=== PATIENT | female | born 1950 | race Caucasian/White ===

== ENCOUNTER → 2016-08-05 | Outpatient (CLI) | payer OTHER ==
--- NOTE | 2016-08-05 12:13 | REPMRS ---
Patient History The patient states she had a clinical breast exam in 07/2016. Patient is postmenopausal. Family history of colorectal cancer in father at age 88, colorectal cancer in paternal grandfather at age 50 or over, and colorectal cancer in mother at age 63. Taking estrogen for 28 years. Digital Woman Screen Mammo: August 05, 2016 - Exam #: [id number] Bilateral CC and MLO view(s) were taken. Technologist: Kamryn Augirre, Technologist Prior study comparison: June 25, 2015, digital woman screen mammo performed at [facility]. May 28, 2014, digital woman screen mammo performed at [facility]. FINDINGS: There are scattered fibroglandular densities. There has been no change in the appearance of the mammogram from the prior studies. There is a mild amount of residual fibroglandular tissue which is fairly symmetric. There is no interval development of dominant mass, architectural distortion, or clustered microcalcification suggestive of malignancy. ASSESSMENT: BI-RADS/ACR category 1 mammogram. Negative. Recommendation Routine screening mammogram in 1 year (for women over age 40). This mammogram was interpreted with the aid of an FDA-approved computer-aided dectection system. Electronically Signed By: Kendrick Davis MD 08/05/16 [id number]
== END ==
LOC: M WHC 10:52
PROVIDERS: ATTEND Nurse Practitioner Women's Health
DX: Z12.31 Encounter for screening mammogram for malignant neoplasm of breast (principal); Z78.0 Asymptomatic menopausal state

== ENCOUNTER → 2016-11-01 | Outpatient (CLI) | payer MEDICARE, OTHER ==
[~2016-11-01] VITALS: Ht 165.1 cm; Wt 68.0 kg
[~2016-11-01] MED LIST: ASPI1TAB PO; ESTR3TA PO; LIDOCAINE 2% INJ 100 MG/5 ML SDV (FOR ANES.) As Ordered ONE; NS 1,000 ML IV ONE; PROPOFOL 500 MG/50 ML VIAL As Ordered ONE; TOPA100T8 PO
[2016-11-01 09:00] VITALS: BP 105/62
== END | disposition home or self-care (01) ==
LOC: M OPP 07:28
PROVIDERS: ATTEND Internal Medicine Gastroenterology
DX: Z12.11 Encounter for screening for malignant neoplasm of colon (principal); K64.0 First degree hemorrhoids; Z80.0 Family history of malignant neoplasm of digestive organs; K58.9 Irritable bowel syndrome, unspecified; K21.9 Gastro-esophageal reflux disease without esophagitis; R12 Heartburn; M54.5 Low back pain; G43.909 Migraine, unspecified, not intractable, without status migrainosus; Z78.0 Asymptomatic menopausal state; Z91.013 Allergy to seafood; Z88.0 Allergy status to penicillin; Z79.82 Long term (current) use of aspirin; Z79.899 Other long term (current) drug therapy

== ENCOUNTER → 2017-08-08 | Outpatient (CLI) | payer MEDICARE, OTHER | LOC: M WHC 10:16 | DX: Z12.31 Encounter for screening mammogram for malignant neoplasm of breast (principal); Z01.419 Encounter for gynecological examination (general) (routine) without abnormal findings (principal); Z78.0 Asymptomatic menopausal state; Z80.3 Family history of malignant neoplasm of breast; Z80.0 Family history of malignant neoplasm of digestive organs; Z92.23 Personal history of estrogen therapy | CPT/HCPCS: 77067 ==

== ENCOUNTER → 2018-09-06 | Outpatient (CLI) | payer MEDICARE, OTHER ==
[~2018-09-06] MED LIST changes: -ASPI1TAB PO; +ASPI81TA26 PO; -LIDOCAINE 2% INJ 100 MG/5 ML SDV (FOR ANES.) As Ordered ONE; -NS 1,000 ML IV ONE; -PROPOFOL 500 MG/50 ML VIAL As Ordered ONE; +TOPA100T12 PO; -TOPA100T8 PO
--- NOTE | 2018-09-06 11:32 | REPMRS ---
Patient History The patient states she had a clinical breast exam in 08/2018. Family history of colorectal cancer at age 63 in mother, colorectal cancer at age 88 in father, colorectal cancer at age 50 or over in paternal grandfather, breast cancer at age 69 in sister. Took estrogen for 28 years. Digital Woman Screen Mammo: September 06, 2018 - Exam #: [id number] Bilateral CC and MLO view(s) were taken. Technologist: Kamryn Aguirre, Technologist Prior study comparison: August 08, 2017, digital woman screen mammo performed at [facility]. August 05, 2016, digital woman screen mammo performed at [email or web address]. June 25, 2015, digital woman screen mammo performed at [email or web address]. FINDINGS: There are scattered fibroglandular densities. There has been no change in the appearance of the mammogram from the prior studies. There is a mild amount of scattered fibroglandular density which is fairly symmetric. There is no interval development of dominant mass, architectural distortion, or clustered microcalcification suggestive of malignancy. 3-D tomosynthesis shows no additional findings. Assessment: BI-RADS/ACR category 1 mammogram. Negative Mammogram. Recommendation Routine screening mammogram of both breasts in 1 year (for women over age 40). This patient's Lifetime Breast Cancer RIsk is estimated at 5.9 %. This mammogram was interpreted with the aid of an FDA-approved computer-aided dectection system. Electronically Signed By: Earnest Garzon MD 09/06/18 [id number]
== END ==
LOC: M WHC 09:33
PROVIDERS: ATTEND Nurse Practitioner Women's Health
DX: Z01.419 Encounter for gynecological examination (general) (routine) without abnormal findings (principal); Z12.31 Encounter for screening mammogram for malignant neoplasm of breast; Z92.23 Personal history of estrogen therapy; Z80.3 Family history of malignant neoplasm of breast; Z80.0 Family history of malignant neoplasm of digestive organs
CPT/HCPCS: 77063; 77067; G0101

== ENCOUNTER → 2019-09-25 | Outpatient (CLI) | payer MEDICARE, OTHER ==
--- NOTE | 2019-09-25 11:21 | REP ---
REASON: Foot pain. No trauma. No priors. FINDINGS: The joint spaces are symmetric and relatively well maintained. There is no evidence of acute fracture or destructive osseous lesion. Plantar and retrocalcaneal heel spurs are present. IMPRESSION: Negative. Electronically Signed by Chetan Hutchins DO 09/25/2019 12:06 P
== END ==
LOC: M WUC 10:47
PROVIDERS: ATTEND Nurse Practitioner Family
DX: M77.32 Calcaneal spur, left foot (principal); M79.672 Pain in left foot

== ENCOUNTER → 2019-11-29 | Outpatient (CLI) | payer MEDICARE, OTHER ==
--- NOTE | 2019-11-29 11:06 | REPMRS ---
Patient History The patient states she has not had a clinical breast exam in over a year. Family history of colorectal cancer at age 63 in mother, colorectal cancer at age 88 in father, colorectal cancer at age 50 or over in paternal grandfather, breast cancer at age 69 in sister. Took estrogen for 28 years. 3D TOMOSYNTHESIS WAS PERFORMED. The [facility] lifetime risk for breast cancer is 5.2%. VOLPARA DENSITY B. Digital Woman Screen Mammo: November 29, 2019 - Exam #: [id number] Bilateral CC and MLO view(s) were taken. Technologist: Fozia Peralta, Technologist Prior study comparison: September 06, 2018, bilateral digital woman screen mammo performed at [facility]. August 08, 2017, digital woman screen mammo performed at [facility]. FINDINGS: The breast tissue is heterogeneously dense. This may lower the sensitivity of mammography. There has been no change in the appearance of the mammogram from the prior studies. There is a moderate amount of residual fibroglandular tissue which is fairly symmetric. There is no interval development of dominant mass, areas of architectural distortion, or clustered microcalcification typical of malignancy. Assessment: BI-RADS/ACR category 1 mammogram. Negative Mammogram. Recommendation Routine screening mammogram in 1 year (for women over age 40). This mammogram was interpreted with the aid of an FDA-approved computer-aided dectection system. Electronically Signed By: Kendrick Davis MD 11/29/19 [id number]
--- NOTE | 2020-01-02 09:48 | DEXA ---
AP SPINE L1 - L4 1.078 -0.9 0.7 LT FEMUR TOTAL 0.906 -0.8 0.5 LT NECK 0.887 -1.1 0.5 RT FEMUR TOTAL 0.908 -0.8 0.6 RT NECK 0.800 -1.7 -0.1 TOTAL BODY TOTAL OTHER COMMENTS: Normal Bone Densitometry of the spine. There is low bone density of the hips. The increased density of the spine does represent a significant change. The decreased density of the left hip does represent a significant change. The decreased density of the right hip does represent a significant change. The density of the spine has decreased 5.7% since the initial exam on 03/02/2004. The decreased 2.4% since the most recent exam on 08/07/2009. The density of the left hip has decreased 8.6% since the initial exam on 03/02/2004. The density of the left hip has decreased 3.0% since the most recent exam on 08/07/2009. The density of the right hip has decreased 12.7% since the initial exam on 03/02/2004. The density of the right hip has decreased 8.0% since the most recent exam on08/07/2009. FOLLOW-UP: Recommendation for the next bone density exam: 2 years. KARRI
== END ==
LOC: M WHC 09:51
PROVIDERS: ATTEND Nurse Practitioner Women's Health
DX: Z12.31 Encounter for screening mammogram for malignant neoplasm of breast (principal); Z78.0 Asymptomatic menopausal state; Z80.0 Family history of malignant neoplasm of digestive organs; Z80.3 Family history of malignant neoplasm of breast

== ENCOUNTER 2020-12-02 09:53 | Emergency (ER) | payer MEDICARE, OTHER ==
[~2020-12-02] VITALS: Ht 165.1 cm; Wt 75.0 kg
[2020-12-02] MEDS ORDERED: FAMO20TA PO (10:19)
[2020-12-02] MEDS ORDERED: RELP40TA PO (10:20)
[2020-12-02 10:53] LABS: BASO # 0.1 10^3/uL (0.0-0.2); EOS # 0.2 10^3/uL (0.0-0.5); EOS % 3.9 % (0.0-3.0); HEMATOCRIT 44.3 % (36.0-47.0); HEMOGLOBIN 14.2 g/dl (12.0-15.5); LYMPH # 1.3 10^3/uL (1.5-5.0); LYMPH % 24.2 % (24.0-44.0); MEAN CORPUSCULAR HEMOGLOBIN 28.9 pg (27.0-33.0); MEAN CORPUSCULAR HGB CONC 32.1 g/dl (32.0-36.5); MONO # 0.4 10^3/uL (0.0-0.8); MONO % 7.5 % (2.0-8.0); NEUTROPHILS # 3.3 10^3/uL (1.5-8.5); PLATELET COUNT, AUTOMATED 270 10^3/uL (150-450); RED BLOOD COUNT 4.92 10^6/uL (4.00-5.40); WHITE BLOOD COUNT 5.2 10^3/uL (4.0-10.0)
[2020-12-02 11:04] LABS: INR 0.95; PROTHROMBIN TIME 12.9 SECONDS (12.5-14.3)
--- NOTE | 2020-12-02 11:04 | REP ---
INDICATION: CHEST PAIN. COMPARISON: Comparison chest x-ray August 25, 2006. TECHNIQUE: Portable upright AP chest radiograph. FINDINGS: The lungs are well inflated and free of infiltrate. Pleural angles are sharp. Heart size is normal. Pulmonary vasculature is not increased. EKG electrodes are seen. The radiograph is exposed at a somewhat lordotic angle today. IMPRESSION: No active disease. <Electronically signed by Earnest Garzon > 12/02/20 [id number]
[2020-12-02 11:15] LABS: ALBUMIN 4.4 GM/DL (3.2-5.2); ALT/SGPT 26 U/L (12-78); BILIRUBIN,DIRECT < 0.1 MG/DL (0.0-0.2); BILIRUBIN,TOTAL 0.3 MG/DL (0.2-1.0); CK-MB VALUE MASS < 1.0 NG/ML (<3.6); CPK CREATINE PHOSPHOKINASE 231 U/L (26-192); LIPASE 110 U/L (73-393); MB/CK RELATIVE INDEX 0.43 (< OR =4); TOTAL PROTEIN 7.8 GM/DL (6.4-8.2); TROPONIN I < 0.02 NG/ML (< 0.10)
[2020-12-02] MEDS ORDERED: ISOVUE-370 76% 100ML VIAL As Ordered ONE (11:34)
--- NOTE | 2020-12-02 12:39 | REP ---
INDICATION: r/o PE. COMPARISON: Chest x-ray 12/02/2020, 08/25/2006 TECHNIQUE: CT angiogram chest performed following the intravenous administration of 75 cc of Isovue 370. Sagittal and coronal reconstruction images are performed. FINDINGS: Lungs: Clear, no infiltrate or nodule. Mediastinum: No adenopathy or mass. No hiatal hernia. Pulmonary arteries: No evidence of pulmonary embolism. Giuliana: No adenopathy. Axilla: No adenopathy. Pleura: No effusion, pleural plaque or calcified plaque or pleural based mass.. Heart: Not enlarged. No pericardial thickening or effusion. Thoracic aorta: No aneurysm or dissection. Upper abdominal structures: Those portions of the visible liver, kidneys, adrenal glands and pancreas are unremarkable. The gallbladder shows no calcified stone or mass. No splenomegaly or focal splenic lesion. Bowel loops were unremarkable no free air or ascites in the upper abdomen. Visualized osseous structures: Visualized ribs clavicles scapulae, humeral heads, sternum and manubrium are unremarkable. Spine shows diffuse degenerative changes scattered throughout.. IMPRESSION: No CT evidence of pulmonary embolism.No infiltrate seen. No significant or acute finding. <Electronically signed by Qasim Jj > 12/02/20 [id number]
[2020-12-02 13:56] LABS: CK-MB VALUE MASS < 1.0 NG/ML (<3.6); CPK CREATINE PHOSPHOKINASE 75 U/L (26-192); MB/CK RELATIVE INDEX 1.33 (< OR =4); TROPONIN I < 0.02 NG/ML (< 0.10)
[2020-12-02] MEDS ORDERED: PANT40TA29 PO (14:08)
[2020-12-02 14:55] VITALS: BP 124/63
--- NOTE | 2020-12-03 05:09 | ECGEPIP ---
[facility] - ED Test Date: 2020-12-02 Pat Name: OLIVIER DON Department: Room: - Gender: Female [employer] Dean: : 1950 Requested By: Giovanni Solis Order Number: [id number] Reading MD: Giovanni Story Measurements Intervals [place] Rate: 61 P: 17 MS: 134 QRS: 47 QRSD: 120 T: 21 QT: 424 QTc: 426 Interpretive Statements Normal sinus rhythm MODERATE INTRAVENTRICULAR CONDUCTION DELAY NONSPECIFIC T WAVE ABNORMALITY(S) NO PRIORS FOR COMPARISON Electronically Signed on 12-03-2020 5:09:36 EDT by Giovanni Story
--- NOTE | 2020-12-03 05:11 | ECGEPIP ---
[facility] - ED Test Date: 2020-12-02 Pat Name: OLIVIER DON Department: Room: - Gender: Female [employer] Carter: : 1950 Requested By: Giovanni Solis Order Number: [id number] Reading MD: Giovanni Story Measurements Intervals [place] Rate: 63 P: -5 TN: 150 QRS: 41 QRSD: 108 T: 33 QT: 442 QTc: 452 Interpretive Statements Normal sinus rhythm Incomplete right bundle branch block NONSPECIFIC T WAVE ABNORMALITY(S) SIMILAR TO PRIOR ON SAME DATE Electronically Signed on 12-03-2020 5:10:51 EDT by Giovanni Story
== END 2020-12-02 15:22 | disposition home or self-care (01) ==
LOC: M ED 09:53
DX: R07.9 Chest pain, unspecified (principal); K21.9 Gastro-esophageal reflux disease without esophagitis; Z88.0 Allergy status to penicillin; Z91.013 Allergy to seafood
CPT/HCPCS: 36415; 71045; 71275; 80047; 80076; 82550; 82553; 83690; 84484; 85025; 85610; 93005; 93041; 94760; 99285; Q9967

== ENCOUNTER → 2020-12-25 | Outpatient (CLI) | payer MEDICARE, OTHER ==
[~2020-12-25] MED LIST changes: +FAMO20TA PO; +PANT40TA29 PO; +RELP40TA PO
--- NOTE | 2020-12-25 12:51 | REPMRS ---
Patient History The patient states she had a clinical breast exam in December 2020. Patient is postmenopausal. Family history of colorectal cancer at age 63 in mother, colorectal cancer at age 88 in father, colorectal cancer at age 50 or over in paternal grandfather, breast cancer at age 69 in sister, breast cancer at age 73 in sister. Took estrogen for 28 years. Patient states no breast complaints today. Patient has signed MRS History Sheet. Digital Woman Screen Mammo: December 25, 2020 - Exam #: [id number] Bilateral CC and MLO view(s) were taken. Technologist: Jacquie Rogers, Technologist Prior study comparison: November 29, 2019, bilateral digital woman screen mammo performed at [facility]. September 06, 2018, bilateral digital woman screen mammo performed at [facility]. August 08, 2017, digital woman screen mammo performed at [facility]. FINDINGS: There are scattered fibroglandular densities. The Volpara volumetric breast density category is:B. There has been no change in the appearance of the mammogram from the prior studies. There is a mild amount of scattered fibroglandular density which is fairly symmetric. There is no interval development of dominant mass, architectural distortion, or grouped microcalcification suggestive of malignancy. 3-D tomosynthesis shows no additional findings. Assessment: BI-RADS/ACR category 1 mammogram. Negative Mammogram. Recommendation Routine screening mammogram of both breasts in 1 year (for women over age 40). This patient's [facility] Lifetime Breast Cancer Risk is estimated at 4.9 %. This mammogram was interpreted with the aid of an FDA-approved computer-aided dectection system. Electronically Signed By: Earnest Garzon MD 12/25/20 [id number]
== END ==
LOC: M WHC 11:10
PROVIDERS: ATTEND Nurse Practitioner Women's Health
DX: Z01.419 Encounter for gynecological examination (general) (routine) without abnormal findings (principal); Z12.31 Encounter for screening mammogram for malignant neoplasm of breast; Z78.0 Asymptomatic menopausal state; Z80.0 Family history of malignant neoplasm of digestive organs; Z80.3 Family history of malignant neoplasm of breast; Z92.23 Personal history of estrogen therapy
CPT/HCPCS: 77063; 77067; G0101

== ENCOUNTER → 2021-01-30 | Outpatient (REF) | payer MEDICARE, OTHER ==
[2021-01-30 17:43] LABS: LABILE ALKPHOS 96 U/L; STABLE ALKPHOS 62 U/L
[2021-01-30 17:44] LABS: % LABILE ALKALINE PHOSPHATASE 60 %
== END ==
LOC: M LAB REF 15:58
PROVIDERS: ATTEND Family Medicine
DX: R74.8 Abnormal levels of other serum enzymes (principal)

== ENCOUNTER → 2021-02-06 | Outpatient (CLI) | payer MEDICARE, OTHER ==
[~2021-02-06] MED LIST changes: +GASTROGRAFIN SOLUTION 30ML (Q9963) As Ordered ONE; +ISOVUE-370 76% 100ML VIAL As Ordered ONE
--- NOTE | 2021-02-06 14:49 | REP ---
INDICATION: EPIGASTRIC PAIN, ABNORMAL LABS. COMPARISON: 05/12/2007 TECHNIQUE: Standard helical technique before and after the intravenous administration of 100 cc Isovue 370 and after oral bowel preparatory contrast administration. FINDINGS: The lung bases are clear and essentially unchanged compared to the chest CT of 12/02/2020. The pre contrast enhanced portion examination shows a patent splenic densities to be within normal limits. There is no nephrolithiasis or cholelithiasis. The contrast-enhanced portion examination shows the liver, gallbladder, spleen, pancreas, adrenal glands, and kidneys to be within normal limits. The abdominal aorta and para-aortic regions are within normal limits. The bowel loops and the mesenteries are within normal limits. There is no evidence of a mass or adenopathy. There is no free fluid or free air. Bone window technique throughout the examination shows increased bony density throughout the sacrum which has increased from the prior exam. Seen in the anterior aspect of the superior endplate of L 3 there is an additional area of sclerosis which has increased in size compared to the prior exam. IMPRESSION: 1. Increased bony density, as described above, the etiology of which is uncertain. It has progressed slowly compared to the prior examination but further evaluation is warranted. 2. There is no evidence of acute intra-abdominal or intrapelvic disease with findings as described above. <Electronically signed by Chetan Hutchins > 02/06/21 [id number]
== END ==
LOC: M RAD 12:37
PROVIDERS: ATTEND Family Medicine
DX: R10.13 Epigastric pain (principal); R74.8 Abnormal levels of other serum enzymes
CPT/HCPCS: 74178; Q9963; Q9967

== ENCOUNTER → 2021-04-15 | Outpatient (CLI) | payer MEDICARE, OTHER ==
[~2021-04-15] MED LIST changes: -GASTROGRAFIN SOLUTION 30ML (Q9963) As Ordered ONE; -ISOVUE-370 76% 100ML VIAL As Ordered ONE
== END ==
LOC: M RAD 09:52
PROVIDERS: ATTEND Family Medicine
DX: D48.0 Neoplasm of uncertain behavior of bone and articular cartilage (principal)
CPT/HCPCS: 78306; A9503

== ENCOUNTER → 2021-12-02 | Outpatient (CLI) | payer MEDICARE, OTHER | LOC: M LABSMTC 10:00 | PROVIDERS: ATTEND Pediatrics | DX: Z20.828 Contact with and (suspected) exposure to other viral communicable diseases (principal) | CPT/HCPCS: 87426; C9803 ==

== ENCOUNTER → 2022-02-24 | Outpatient (CLI) | payer MEDICARE, OTHER | LOC: M WHC 08:20 | PROVIDERS: ATTEND Nurse Practitioner Family | DX: Z12.31 Encounter for screening mammogram for malignant neoplasm of breast (principal) ==

== ENCOUNTER → 2022-10-01 | Outpatient (REF) | payer MEDICARE, OTHER ==
[2022-10-01 22:04] LABS: PTH INTACT 37.3 PG/ML (18.5-88.0)
== END ==
LOC: M LAB REF 16:11
PROVIDERS: ATTEND Nurse Practitioner Family
DX: R74.8 Abnormal levels of other serum enzymes (principal)

== ENCOUNTER 2022-10-02 00:42 | Emergency (ER) | payer MEDICARE, OTHER ==
[~2022-10-02] VITALS: Ht 165.1 cm; Wt 69.1 kg
[2022-10-02 04:44] VITALS: BP 118/59
[2022-10-02] MEDS ORDERED: NORCO 5/325MG TABLET (HOME DOSE PACK) PO ONE (05:05)
== END 2022-10-02 05:15 | disposition home or self-care (01) ==
LOC: M ED 00:42
DX: S93.402A Sprain of unspecified ligament of left ankle, initial encounter (principal); K21.9 Gastro-esophageal reflux disease without esophagitis; Z88.0 Allergy status to penicillin; Z91.013 Allergy to seafood; Z79.82 Long term (current) use of aspirin; Z79.899 Other long term (current) drug therapy

== ENCOUNTER 2022-11-01 09:30 | Day surgery (SDC) | payer MEDICARE, OTHER ==
[~2022-11-01] VITALS: Ht 165.1 cm; Wt 68.9 kg
[~2022-11-01 09:30] MED LIST changes: +ACET-1349 PO; +LIDOCAINE 2% 100MG/5ML SDV (FOR ANES.) As Ordered ONE; +MAGN400C2 PO; +NS 1,000 ML IV ONE; +ONDANSETRON 4MG 2ML VIAL As Ordered ONE; +RIZA10TA2 PO; +TOPI-254 PO; +fentaNYL 100 MCG/2 ML INJECTION As Ordered ONE; +propofoL 200 MG/20 ML VIAL As Ordered ONE
[2022-11-01 12:19] VITALS: TEMP 96.5
[2022-11-01 12:40] VITALS: BP 131/60; O2SAT 100
== END 2022-11-01 12:51 | disposition home or self-care (01) ==
LOC: M OPP 09:30
PROVIDERS: ATTEND Internal Medicine Gastroenterology
DX: Z12.11 Encounter for screening for malignant neoplasm of colon (principal); Z80.0 Family history of malignant neoplasm of digestive organs; R12 Heartburn; Z79.82 Long term (current) use of aspirin; Z88.0 Allergy status to penicillin; Z91.013 Allergy to seafood
CPT/HCPCS: 43235; G0105; J2405; J3010

== ENCOUNTER → 2023-06-24 | Outpatient (CLI) | payer MEDICARE, OTHER ==
[~2023-06-24] MED LIST changes: -LIDOCAINE 2% 100MG/5ML SDV (FOR ANES.) As Ordered ONE; -NS 1,000 ML IV ONE; -ONDANSETRON 4MG 2ML VIAL As Ordered ONE; +TOPI-21 PO; -TOPI-254 PO; -fentaNYL 100 MCG/2 ML INJECTION As Ordered ONE; -propofoL 200 MG/20 ML VIAL As Ordered ONE
== END ==
LOC: M WHC 10:03
PROVIDERS: ATTEND Nurse Practitioner Family
DX: Z12.31 Encounter for screening mammogram for malignant neoplasm of breast (principal)

== ENCOUNTER → 2024-07-10 | Outpatient (REF) | payer MEDICARE, OTHER ==
[2024-07-10 12:47] LABS: CK-MB VALUE MASS < 1.0 NG/ML (<3.6)
[2024-07-10 12:52] LABS: CPK CREATINE PHOSPHOKINASE 63 U/L (34-145); MB/CK RELATIVE INDEX 1.58 (< OR =4)
== END ==
LOC: M LAB REF 12:31
PROVIDERS: ATTEND Internal Medicine
DX: R07.89 Other chest pain (principal)

== ENCOUNTER 2024-08-31 07:41 | Day surgery (SDC) | payer MEDICARE, OTHER ==
[~2024-08-31] VITALS: Ht 165.1 cm; Wt 70.9 kg
[~2024-08-31 07:41] MED LIST changes: +MELA5TAB47 PO; +THERTAB52 PO
[2024-08-31] MEDS ORDERED: propofoL 200 MG/20 ML VIAL As Ordered ONE (09:18)
[2024-08-31] MEDS ORDERED: GLYCOPYRROLATE INJ 0.2 MG/ML 2 ML VIAL As Ordered ONE (09:22)
[2024-08-31] MEDS ORDERED: LIDOCAINE 2% 100MG/5ML SDV (FOR ANES.) As Ordered ONE (09:22)
[2024-08-31 09:31] VITALS: TEMP 97.3
[2024-08-31 09:48] VITALS: BP 127/69; O2SAT 99
== END 2024-08-31 10:01 | disposition home or self-care (01) ==
LOC: M OPP 07:41
PROVIDERS: ATTEND Surgery
DX: K44.9 Diaphragmatic hernia without obstruction or gangrene (principal); Z88.0 Allergy status to penicillin; Z91.013 Allergy to seafood; Z79.899 Other long term (current) drug therapy
CPT/HCPCS: 43239; 88305; 91035; J1596

== ENCOUNTER → 2025-02-28 | Outpatient (CLI) | payer MEDICARE, OTHER | LOC: M WHC 09:04 | PROVIDERS: ATTEND Nurse Practitioner Family | DX: Z12.31 Encounter for screening mammogram for malignant neoplasm of breast (principal); R92.323 Mammographic fibroglandular density, bilateral breasts ==

== ENCOUNTER → 2025-03-27 | Outpatient (CLI) | payer MEDICARE, OTHER | LOC: M PLALAB 14:22 | PROVIDERS: ATTEND Surgery | DX: Z13.79 Encounter for other screening for genetic and chromosomal anomalies (principal); Z80.3 Family history of malignant neoplasm of breast; Z80.0 Family history of malignant neoplasm of digestive organs ==